=== PATIENT | female | born 1970 | race Caucasian/White ===

== ENCOUNTER 2020-03-31 09:02 | Emergency (ER) | payer BC ==
[2020-03-31] MEDS ORDERED: Sodium Chloride 0.9% 1000 ML 1,000 ML IV STA (09:25)
[2020-03-31] MEDS ORDERED: Pepcid 20 MG VIAL IV ONE ×2 (09:25→09:30)
[2020-03-31] MEDS ORDERED: GI COCKTAIL 45 ML (Maalox/Lidocaine) PO ONE (09:25)
--- NOTE | 2020-03-31 09:27 | ERPHSYRPT ---
- History of Present Illness Time Seen by Provider: 03/31/20 09:07 Patient Subjective Stated Complaint: Pt states "My belly really hurts at the top. I vomited as well." Triage Nursing Assessment: Pt presented alert and oriented X 3, skin pwd Pt ambulates with a slow gait, pt crying, moaning, grunting and tachypneic. Pt has no abdominal tenderness, pt speak in clear full sentences. Physician History: 49 years old female with history of gastric bypass Catherine-en-Y 10 years ago presented in the ER with chief complaint of epigastric area sudden onset sharp burning pain moderate to severe intensity this morning associated with nausea and an episode of nonprojectile, nonbilious vomiting with no hematemesis. It started to improve on its own and currently 3/10 intensity. Does not want any pain medication. Nausea is better as well. Patient also reports feeling a sm all lump in the epigastric area of golf ball size off and on for the last few weeks which improved with applying pressure. Denies any chest pain palpitations or shortness of breath. No sick contact, no fever or chills reported. Timing/Duration: today, sudden, improved Activities at Onset: rest Quality: burning, sharpness Abdominal Pain Onset Location: epigastric, periumbilical Pain Radiation: no radiation Severity of Pain-Max: severe Severity of Pain-Current: mild Modifying Factors: Improves With: nothing Associated Symptoms: nausea, vomiting Previous symptoms: no prior history Allergies/Adverse Reactions: No Known Drug Allergies Allergy (Verified 03/31/20 09:12) Hx Tetanus, Diphtheria Vaccination/Date Given: No Hx Influenza Vaccination/Date Given: No Hx Pneumococcal Vaccination/Date Given: No Immunizations Up to Date: Yes Travel Risk - International Travel Have you traveled outside of the country in past 3 weeks: No - Coronavirus Screening Are you exhibiting any of the following symptoms?: No Close contact with a COVID-19 positive Pt in past 14-21 Days: No - Review of Systems Constitutional: No Symptoms Eyes: No Symptoms Ears, Nose, & Throat: No Symptoms Respiratory: No Symptoms Cardiac: No Symptoms Abdominal/Gastrointestinal: Abdominal Pain, Nausea, Vomiting Genitourinary Symptoms: No Symptoms Musculoskeletal: No Symptoms Skin: No Symptoms Neurological: No Symptoms Psychological: No Symptoms Endocrine: No Symptoms Hematologic/Lymphatic: No Symptoms Immunological/Allergic: No Symptoms - Past Medical History Pertinent Past Medical History: Yes Other Medical History: gastric bypass - Past Surgical History Past Surgical History: Yes Other Surgical History: gastric bypass. c section - Social History Smoking Status: Never smoker Exposure to second hand smoke: No Drug Use: none Patient Lives Alone: No - Female History Hx Last Menstrual Period: 03/20/2020 Hx Now: No - Nursing Vital Signs Nursing Vital Signs: Initial Vital Signs Temperature 97.5 F 03/31/20 09:02 Pulse Rate 80 03/31/20 09:02 Respiratory Rate 24 03/31/20 09:02 Blood Pressure 91/55 03/31/20 09:02 O2 Sat by Pulse Oximetry 95 03/31/20 09:02 Pain Scale Pain Intensity 0 - Physical Exam General Appearance: no apparent distress, alert Eye Exam: eyes nml inspection Ears, Nose, Throat Exam: normal ENT inspection, pharynx normal Neck Exam: normal inspection, non-tender, supple, full range of motion Respiratory Exam: normal breath sounds, lungs clear Cardiovascular Exam: regular rate/rhythm, normal heart sounds Gastrointestinal/Abdomen Exam: soft, normal bowel sounds, tenderness (Tenderness epigastric area with no guarding or rebound tenderness. No right upper quadrant tenderness. Negative Carrion sign.) Back Exam: normal inspection, normal range of motion Extremity Exam: normal inspection, normal range of motion Neurologic Exam: alert, oriented x 3, cooperative Skin Exam: normal color SpO2 Interpretation: normal SpO2: 95 O2 Delivery: Room Air - Course EKG Interpreted by Me: RATE, Sinus Rhythm, NORMAL AXIS, NORMAL INTERVALS, NORMAL QRS Ordered Tests: Active Orders 24 hr Category Date Time Status EKG-ER Only STAT Care 03/31/20 09:25 Completed IV Insertion STAT Care 03/31/20 09:25 Completed ABDOMEN AND PELVIS W CONTRAST [CT] Stat Exams 03/31/20 09:26 Taken LIVER OR SPLEEN [US] Stat Exams 03/31/20 11:36 Taken AMYLASE Stat Lab 03/31/20 09:42 Completed CBC W DIFF Stat Lab 03/31/20 09:42 Completed CMP Stat Lab 03/31/20 09:42 Completed LIPASE Stat Lab 03/31/20 09:42 Completed TROPONIN Q3H Lab 03/31/20 09:42 Completed TROPONIN Q3H Lab 03/31/20 12:41 Completed Medication Summary Discontinued Medications Generic Name Dose Route Start Last Admin Trade Name Freq PRN Reason Stop Dose Admin Al Hydrox/Mg Hydrox/Simethicone Confirm 03/31/20 09:31 Maalox Es 30 Ml Unit Dose Administered 03/31/20 09:32 Dose 30 ml .ROUTE .STK-MED ONE Famotidine 20 mg 03/31/20 09:25 03/31/20 09:36 Pepcid 20 Mg Vial IV 03/31/20 09:26 20 mg STAT ONE Administration Famotidine Confirm 03/31/20 09:30 Pepcid 20 Mg Vial Administered 03/31/20 09:31 Dose 20 mg IV .STK-MED ONE Sodium Chloride 1,000 mls @ 999 mls/hr 03/31/20 09:25 03/31/20 10:58 Sodium Chloride 0.9% 1000 Ml IV 03/31/20 10:25 Infused .Q1H1M STA Infusion Sodium Chloride Confirm 03/31/20 09:31 Sodium Chloride 0.9% 1000 Ml Administered 03/31/20 09:32 Dose 1,000 mls @ ud .ROUTE .STK-MED ONE Lidocaine HCl Confirm 03/31/20 09:31 Xylocaine Hcl Viscous * Administered 03/31/20 09:32 Dose 15 ml .ROUTE .STK-MED ONE Magnesium Hydroxide 45 ml 03/31/20 09:25 03/31/20 09:35 Gi Cocktail 45 Ml (Maalox/Lidocaine) PO 03/31/20 09:26 45 ml STAT ONE Administration Lab/Rad Data: Laboratory Result Diagrams 03/31/20 09:42 03/31/20 09:42 Laboratory Results 03/31/20 03/31/20 03/31/20 Range/Units 12:41 09:42 09:42 WBC (4.0-10.5) K/mm3 RBC (4.1-5.4) M/mm3 Hgb (12.0-16.0) gm/dl Hct (35-47) % MCV (78-100) fl MCH (26-32) pg MCHC (32-36) g/dl RDW (11.5-14.0) % Plt Count (150-450) K/mm3 MPV (7.5-11.0) fl Gran % (36.0-66.0) % Eos # (Auto) (0-0.5) Absolute Lymphs (auto) (1.0-4.6) Absolute Monos (auto) (0.0-1.3) Lymphocytes % (24.0-44.0) % Monocytes % (0.0-12.0) % Eosinophils % (0.00-5.0) % Basophils % (0.0-0.4) % Absolute Granulocytes (1.4-6.9) Basophils # (0-0.4) Sodium 140 (137-145) mmol/L Potassium 4.2 (3.5-5.1) mmol/L Chloride 106 (98-107) mmol/L Carbon Dioxide 27 (22-30) mmol/L Anion Gap 11.8 (5-15) MEQ/L BUN 11 (7-17) mg/dL Creatinine 0.88 (0.52-1.04) mg/dL Estimated GFR > 60.0 ML/MIN Glucose 135 H (74-106) mg/dL Calcium 9.0 (8.4-10.2) mg/dL Total Bilirubin 1.20 (0.2-1.3) mg/dL AST 78 H (14-36) U/L ALT 23 (0-35) U/L Alkaline Phosphatase 79 (38-126) U/L Troponin I < 0.012 < 0.012 (0.000-0.034) ng/mL Serum Total Protein 6.7 (6.3-8.2) g/dL Albumin 4.0 (3.5-5.0) g/dL Amylase 56 (30-110) U/L Lipase 46 (23-300) U/L Urine Color (YELLOW) Urine Appearance (CLEAR) Urine pH (5-6) Ur Specific [place] (1.005-1.025) POC Urine Protein Conf (Negative) Urine Ketones (NEGATIVE) Urine Nitrite (NEGATIVE) Urine Bilirubin (NEGATIVE) Urine Urobilinogen (0-1) mg/dL Urine Leukocytes (NEGATIVE) Urine WBC (Auto) (0-5) /HPF Urine RBC (Auto) (0-2) /HPF U Epithel Cells (Auto) (FEW) /HPF Urine Bacteria (Auto) (NEGATIVE) /HPF Urine RBC (0-5) Sam/ul Urine Mucus (Auto) (NEGATIVE) /HPF Ur Culture Indicated? Urine Glucose (NEGATIVE) mg/dL Slides for Path Review 03/31/20 03/31/20 Range/Units 09:42 09:26 WBC 8.7 (4.0-10.5) K/mm3 RBC 4.65 (4.1-5.4) M/mm3 Hgb 13.6 (12.0-16.0) gm/dl Hct 42.3 (35-47) % MCV 91.0 (78-100) fl MCH 29.2 (26-32) pg MCHC 32.2 (32-36) g/dl RDW 13.5 (11.5-14.0) % Plt Count 175 (150-450) K/mm3 MPV 10.1 (7.5-11.0) fl Gran % 89.3 H (36.0-66.0) % Eos # (Auto) 0.11 (0-0.5) Absolute Lymphs (auto) 0.39 L (1.0-4.6) Absolute Monos (auto) 0.42 (0.0-1.3) Lymphocytes % 4.5 L (24.0-44.0) % Monocytes % 4.8 (0.0-12.0) % Eosinophils % 1.3 (0.00-5.0) % Basophils % 0.1 (0.0-0.4) % Absolute Granulocytes 7.74 H (1.4-6.9) Basophils # 0.01 (0-0.4) Sodium (137-145) mmol/L Potassium (3.5-5.1) mmol/L Chloride (98-107) mmol/L Carbon Dioxide (22-30) mmol/L Anion Gap (5-15) MEQ/L BUN (7-17) mg/dL Creatinine (0.52-1.04) mg/dL Estimated GFR ML/MIN Glucose (74-106) mg/dL Calcium (8.4-10.2) mg/dL Total Bilirubin (0.2-1.3) mg/dL AST (14-36) U/L ALT (0-35) U/L Alkaline Phosphatase (38-126) U/L Troponin I (0.000-0.034) ng/mL Serum Total Protein (6.3-8.2) g/dL Albumin (3.5-5.0) g/dL Amylase (30-110) U/L Lipase (23-300) U/L Urine Color YELLOW (YELLOW) Urine Appearance CLEAR (CLEAR) Urine pH 9.5 (5-6) Ur Specific [place] 1.020 (1.005-1.025) POC Urine Protein Conf 30 (Negative) Urine Ketones >=160 (NEGATIVE) Urine Nitrite NEGATIVE (NEGATIVE) Urine Bilirubin NEGATIVE (NEGATIVE) Urine Urobilinogen 0.2 (0-1) mg/dL Urine Leukocytes NEGATIVE (NEGATIVE) Urine WBC (Auto) NONE (0-5) /HPF Urine RBC (Auto) NONE (0-2) /HPF U Epithel Cells (Auto) RARE (FEW) /HPF Urine Bacteria (Auto) NONE (NEGATIVE) /HPF Urine RBC NEGATIVE (0-5) Sam/ul Urine Mucus (Auto) SLIGHT (NEGATIVE) /HPF Ur Culture Indicated? NO Urine Glucose NEGATIVE (NEGATIVE) mg/dL Slides for Path Review YES - Progress Progress: improved, re-examined Progress Note: 03/31/20 12:53 49 years old female presented with sudden onset epigastric area pain this morning which started to improve on its own presentation in the ER. She is offered pain medication which he refused. Given IV Pepcid, on reevaluation her pain is completely relieved. She has normal white count, grossly unremarkable chemistries including lipase. I have obtained CT abdomen pelvis with contrast which showed left hepatic cyst which was followed by ultrasound which showing simple cyst with hemangioma. Ultrasound preliminary report also pointed mild thickening of gallbladder wall but no cholelithiasis/sludge or pericholecystic fluid. Patient has minimal tenderness in the right upper quadrant. She might have passed a stone or a calculus cholecystitis versus gastritis. Recommended outpatient follow-up with primary care and may need referral for general surgery for further evaluation once official report of ultrasound is there. Patient remained pain-free. Do not think she needs to be admitted or needs any further work-up in the ER and is stable for discharge. Counseled pt/family regarding: lab results, diagnosis, need for follow-up, rad results - Departure Departure Disposition: Home Clinical Impression: Acute upper abdominal pain, Hepatic cyst Condition: Stable Critical Care Time: No Referrals: DOCTOR,NO FAMILY [Primary Care Provider] - KEVIN MASTERS [ACTIVE STAFF] - Follow Up with PCP/3 days Instructions: Acute Abdomen (Belly Pain), Adult (DC) Additional Instructions: Take Tylenol as needed for pain. Follow-up with primary care for reevaluation. Return to ER for any worsening pain/vomiting or if develop fever chills. Prescriptions: Famotidine 20 mg [Pepcid 20 MG] 20 mg PO BID #60 tablet
[2020-03-31] MEDS ORDERED: MAALOX ES 30 ML UNIT DOSE ONE (09:31)
[2020-03-31] MEDS ORDERED: Sodium Chloride 0.9% 1000 ML 1,000 ML ONE (09:31)
[2020-03-31] MEDS ORDERED: XYLOCAINE HCl Viscous ONE (09:31)
[2020-03-31 09:58] LABS: Absolute Neutrophil Ct (ANC) 7.74 (1.4-6.9); BASOPHIL % 0.1 % (0.0-0.4); Basophil (Absolute #) 0.01 (0-0.4); Eosinophil % 1.3 % (0.00-5.0); Eosinophil (Absolute #) 0.11 (0-0.5); Hematocrit 42.3 % (35-47); Hemoglobin 13.6 gm/dl (12.0-16.0); Lymphocyte (Absolute #) 0.39 (1.0-4.6); Lymphocytes % 4.5 % (24.0-44.0); Mean Corpuscular Hemoglobin 29.2 pg (26-32); Mean Corpuscular Hgb Concent. 32.2 g/dl (32-36); Mean Platelet Volume 10.1 fl (7.5-11.0); Monocyte (Absolute #) 0.42 (0.0-1.3); Monocytes % 4.8 % (0.0-12.0); Neutrophil % 89.3 % (36.0-66.0); Platelet Count 175 K/mm3 (150-450); Red Blood Count 4.65 M/mm3 (4.1-5.4); Red Cell Distribution Width 13.5 % (11.5-14.0); White Blood Count 8.7 K/mm3 (4.0-10.5)
[2020-03-31 10:12] LABS: ALKALINE PHOSPHATASE 79 U/L (38-126); AMYLASE 56 U/L (30-110); ANION GAP 11.8 MEQ/L (5-15); BLOOD UREA NITROGEN 11 mg/dL (7-17); CHLORIDE 106 mmol/L (98-107); Carbon Dioxide 27 mmol/L (22-30); Creatinine 1 0.88 mg/dL (0.52-1.04); EST GLOMERULAR FILTRATION RATE > 60.0 ML/MIN; Glucose 135 mg/dL (74-106); LIPASE 46 U/L (23-300); Potassium 4.2 mmol/L (3.5-5.1); SGOT/AST 78 U/L (14-36); SGPT/ALT 23 U/L (0-35); SODIUM 140 mmol/L (137-145); Total Protein 6.7 g/dL (6.3-8.2)
[2020-03-31 10:50] LABS: Appearance CLEAR (CLEAR); Bilirubin NEGATIVE (NEGATIVE); Epithelial Cells RARE /HPF (FEW); Glucose NEGATIVE (NEGATIVE); Ketones >=160 (NEGATIVE); Mucus SLIGHT /HPF (NEGATIVE); Protein,Urine Dip 30 (Negative); RBC NEGATIVE Ery/ul (0-5)
[2020-03-31 10:51] LABS: Nitrite NEGATIVE (NEGATIVE); Urobilinogen 0.2 mg/dL (0-1)
[2020-03-31 12:55] VITALS: O2SAT 95
[2020-03-31 13:03] VITALS: BP 117/58; PULSE 75
[2020-03-31 15:02] LABS: Slide Review 1 YES
--- NOTE | 2020-03-31 18:07 | XRAY ---
Indication: Abdomen pain, nausea, and vomiting. Multiple contiguous axial images obtained through the abdomen and pelvis using 80 cc Isovue 370 contrast only. Comparison: None Lung bases demonstrates tiny right lower lobe calcified granuloma. No infiltrate or effusion. Heart is not enlarged. Previous gastric bypass surgery. Noncontrasted stomach and bowel loops appear nonobstructed. Normal appendix. 1.7 cm collapsing right ovary cyst. Left lobe of the liver demonstrates a 1.8 cm hemangioma. No free fluid/air. Remaining liver, gallbladder, pancreas, spleen, adrenal glands, kidneys, ureters, bladder, uterus, and aorta appear unremarkable. No pathologic retroperitoneal lymphadenopathy. Osseous structures intact. Impression: 1. 1.7 cm collapsing right ovary cyst and 1.8 cm hepatic hemangioma. 2. Remaining CT abdomen/pelvis with contrast exam is negative. Comment: Preliminary interpretation was made by [facility]. No critical discrepancy.
--- NOTE | 2020-03-31 18:11 | XRAY ---
Indication: Abdomen pain. Abnormal CT. Two-dimensional right upper quadrant abdominal sonogram performed. Comparison: None Right lobe liver demonstrates a 2.5 x 1.8 x 1.4 cm hemangioma anteriorly. 1.7 cm left lobe hepatic cyst anteriorly. No other solid/cystic hepatic mass or ascites. Gallbladder wall thickening measuring 4.1 cm with 1 cm sludge. No pericholecystic fluid. Common bile duct measures 4.7 mm. No intrahepatic biliary distention. Remaining visualized pancreas and right kidney is sonographically unremarkable. Right kidney measures 10.1 cm in length. Impression: 1. Gallbladder wall thickening with intraluminal sludge. Rule out chronic cholecystitis. 2. Incidental hepatic hemangioma and cyst. Comment: Preliminary report was given.
== END 2020-03-31 13:10 | disposition home or self-care (01) ==
LOC: ED 09:02
DX: R10.10 Upper abdominal pain, unspecified (principal); K76.89 Other specified diseases of liver
CPT/HCPCS: 36000; 36415; 74177; 76705; 80053; 81015; 82150; 83690; 84484; 85025; 93005; 96360; 96374; 99284; A9270-GY

== ENCOUNTER 2020-06-11 09:52 | Day surgery (SDC) | payer BC ==
--- NOTE | 2020-06-11 09:42 | HP ---
DATE OF SURGERY: 06/11/2020 HISTORY OF PRESENT ILLNESS: The patient is a 50 year-old with history of epigastric sharp pain, nausea after eating biscuits and gravy. PAST MEDICAL HISTORY: No chronic illnesses. PAST SURGICAL HISTORY: section. LEEP. Tubal ligation. Gastric bypass. MEDICATIONS: None on a regular basis. ALLERGIES: NKDA. FAMILY HISTORY: Negative in regards to this problem. SOCIAL HISTORY: No smoking or alcohol abuse. REVIEW OF SYSTEMS: Fourteen systems reviewed negative or noncontributory as above and per preadmission questionnaire. LAB DATA AND TESTS: The patient reportedly had study that did not show any gallstones on CT scan but she did have HIDA scan show low ejection fraction of 9%. PHYSICAL EXAMINATION: GENERAL: No acute distress. HEENT: Sclerae nonicteric. NECK: No JVD. CHEST: Equal excursion, nonlabored breathing. CVS: Regular rate and rhythm. ABDOMEN: Soft. No peritoneal signs. EXTREMITIES: No significant edema. NEURO: Alert, oriented, moving extremities symmetrically. PSYCH: Appropriate mood and affect. IMPRESSION: Symptomatic biliary dyskinesia, acute exacerbation of chronic cholecystitis. I feel the patient will benefit from cholecystectomy. Risks and benefits explained the procedure in detail including but not limited to bleeding or infection, risk of trocar injury or hernia, risk of bowel, bladder or blood vessel injury, risk of bile leak, bile duct injury, retained stone or sludge possibly requiring further procedure either open or ERCP, general risk of anesthesia, deep venous thrombosis, pulmonary embolism, pneumonia, perioperative risk of aches, pains, bloating, constipation and/or loose stools possibly even chronic in nature, general risk of anesthesia or sedation but not limited to, consent obtained. She understands and agrees to the planned procedure, will proceed with laparoscopic cholecystectomy with possible open as an outpatient.
[~2020-06-11 09:52] MED LIST: Lactated Ringers 1,000 ML IV ONE; Lactated Ringers 1,000 ML IV SCH; MEFOXIN 2 GM PREMIX** 2 GM/50 ML ML IV ONE; Sensorcaine 0.25% 10 ML ONE
[2020-06-11] MEDS ORDERED: Versed 2 MG/2 ML Injection ONE (09:53)
[2020-06-11] MEDS ORDERED: DIPRIVAN 200 MG/20 ML IV ONE (09:53)
[2020-06-11] MEDS ORDERED: SUBLIMAZE 250 MCG/5 ML ONE (09:53)
[2020-06-11] MEDS ORDERED: Zemuron 100 MG/10 ML ONE (09:53)
[2020-06-11] MEDS ORDERED: Xylocaine-Mpf 2% 5 Ml Vial ONE (09:54)
[2020-06-11 10:52] LABS: ANION GAP 9.1 MEQ/L (5-15); BLOOD UREA NITROGEN 14 mg/dL (7-17); CHLORIDE 106 mmol/L (98-107); Calcium 8.6 mg/dL (8.4-10.2); Carbon Dioxide 26 mmol/L (22-30); Creatinine 1 0.94 mg/dL (0.52-1.04); EST GLOMERULAR FILTRATION RATE > 60.0 ML/MIN; Glucose 91 mg/dL (74-106); SODIUM 137 mmol/L (137-145)
[2020-06-11] MEDS ORDERED: BRIDION 200MG/2ML IV ONE (12:25)
[2020-06-11] MEDS ORDERED: TORAdol 30 mg Injection ONE (12:55)
[2020-06-11] MEDS ORDERED: NORCO 5/325 MG PO PRN (13:43)
[2020-06-11 14:32] VITALS: O2SAT 98
[2020-06-11] MEDS ORDERED: Zofran 4 MG/2 ML VIAL IV PRN (14:33)
--- NOTE | 2020-06-11 14:40 | OP ---
SURGERY DATE/TIME: 06/11/2020 1156 PREOPERATIVE DIAGNOSIS: Acute exacerbation of chronic cholecystitis, symptomatic biliary dyskinesia, prior history of Catherine-en-Y gastric bypass. POSTOPERATIVE DIAGNOSIS: Acute exacerbation of chronic cholecystitis, symptomatic biliary dyskinesia, prior history of Catherine-en-Y gastric bypass. PROCEDURE: Laparoscopic cholecystectomy. SURGEON: Dr. El Dowling. ANESTHESIA: General. ESTIMATED BLOOD LOSS: Minimal. INDICATIONS: As noted above. Risks and benefits explained in detail but not limited to and consent obtained. DESCRIPTION OF PROCEDURE AND FINDINGS: The patient was taken to the operating room. General anesthesia induced. Abdomen prepped and draped in the usual sterile fashion. After official time out and no disagreement with planned procedure, a transverse incision made at the supraumbilical area. Fascia grasped and pulled upward. Veress needle inserted and tested with saline. Pneumoperitoneum accomplished insufflating opening pressure of 0-15. An 11 mm bladeless port and camera inserted without difficulty followed by two - 5 mm right upper quadrant ports and 5 mm epigastric port. The gallbladder grasped with some mild chronic inflammatory reaction dissecting posterior, lateral to anterior fashion. Slowly and carefully cystic duct and infundibular junction and cystic artery were isolated until the critical view obtained both anteriorly and posteriorly. Once this was accomplished cystic duct and cystic artery clipped x3 and divided in the usual fashion. Gallbladder slowly and carefully dissected free from its dense attachment to liver bed, clipping two or three other pulsatile oozing side branches off the cystic artery and vein directly on the gallbladder wall as necessary. Just prior to releasing from final attachments to the anterior edge of the liver, one of the graspers tore a small pinhole in the gallbladder spilling a small amount of bile this was suctioned free as possible decompressing the gallbladder. The gallbladder continued to dissect free. Just prior to releasing final attachments to anterior edge of the liver the liver bed re-inspected. Clips noted to be in place cystic duct and cystic artery stumps. No signs of any active bleeding or bile leakage from the liver bed itself. It was felt there is no benefit from drain placement. The gallbladder released from final attachments to the liver pulled up and out the 10/11 port site and passed off. The port replaced. Copious amount irrigation accomplished lateral to the liver and subhepatic space irrigating clear. Clips noted in place in cystic duct and cystic artery stump. No signs of any active bleeding or bile leakage. It was felt there was no benefit from drain placement. Fascial defect 01/28 site closed with puncture closure device with #1 Vicryl. Pneumoperitoneum decompressed. The wound irrigated out. Skin incision closed with 4-0 Vicryl. Steri-Strips and sterile dressing applied. 0.25% Marcaine local injected along the skin incision fascial defect at the beginning of the procedure. There were no immediate complications. Findings discussed with the family out in the waiting area, her daughter I believe.
[2020-06-11 15:02] VITALS: BP 114/45; PULSE 55
== END 2020-06-11 15:00 | disposition home or self-care (01) ==
LOC: SDC 09:52
PROVIDERS: ATTEND Surgery
DX: K81.0 Acute cholecystitis (principal); K82.8 Other specified diseases of gallbladder; Z98.84 Bariatric surgery status; Z79.899 Other long term (current) drug therapy
CPT/HCPCS: 36415; 80048; 84703; J0694; J1885; J2250; J2405; J2704; J3010; A9270-GY